=== PATIENT | female | born 1990 | race Caucasian/White ===

== ENCOUNTER 2019-04-30 06:38 | Day surgery (SDC) | payer BC ==
[2019-04-30] MEDS ORDERED: BUPIVACAINE 0.25% (MPF) 30 ML INJ (06:57)
[2019-04-30] MEDS ORDERED: CEFAZOLIN 2 GM in SOD CHLORIDE 0.9% 50 ML IVPB (07:00)
[2019-04-30] MEDS: BUPIVACAINE 0.25% (STERILE-PAK) 30 ML INJ INJ (07:05)
[2019-04-30] MEDS: SOD CHLORIDE 0.9% 1,000 ML IV (07:41)
[2019-04-30] MEDS ORDERED: LIDOCAINE 1% (MDV) 20 ML INJ (07:54)
[2019-04-30] MEDS ORDERED: PROPOFOL 20 ML (07:54)
[2019-04-30] MEDS ORDERED: MIDAZOLAM 1 MG/ML 2 ML INJ (07:54)
[2019-04-30] MEDS ORDERED: ROCURONIUM 50 MG INJ (07:55)
[2019-04-30] MEDS ORDERED: DIPHENHYDRAMINE 50 MG INJ IV (08:00)
[2019-04-30] MEDS ORDERED: OXYCODONE/ACETAMINOPHEN (5/325) TAB PO ×2 (08:00)
[2019-04-30] MEDS ORDERED: HYDROmorphONE 1 MG/5 ML IV SYRINGE IV (08:00)
[2019-04-30] MEDS ORDERED: ROPIVACAINE 0.5 % 30 ML VIAL (08:04)
[2019-04-30] MEDS ORDERED: ONDANSETRON 4 MG INJ (08:12)
[2019-04-30] MEDS ORDERED: CEFAZOLIN 1 GM INJ (08:12)
[2019-04-30] MEDS ORDERED: SUGAMMADEX SODIUM 200 MG/2 ML VIAL IV (08:34)
[2019-04-30] MEDS: ONDANSETRON 4 MG INJ IV (08:57)
[2019-04-30] MEDS: MEPERIDINE 25 MG INJ IV (08:57)
[2019-04-30] MEDS: HYDROmorphONE 1 MG/5 ML IV SYRINGE IV ×2 (09:02→09:08)
[2019-04-30] MEDS: HYDROCODONE/APAP (5/325) TAB PO (09:12)
== END 2019-04-30 10:24 | disposition home or self-care (01) ==
LOC: SDS 06:38
DX: K80.10 Calculus of gallbladder with chronic cholecystitis without obstruction (principal)
CPT/HCPCS: 47562; 84703; 88304